=== PATIENT | male | born 1980 | race Caucasian/White ===

== ENCOUNTER 2019-07-26 16:05 | Observation (INO) | payer BC ==
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
[2019-07-26] MEDS ORDERED: Sodium Chloride 0.9% 10 ML Syringe FLUSH PRN (16:32)
--- NOTE | 2019-07-26 16:45 | CR ---
[id number] RAD/RAD Chest PA or AP 1V EXAM: SINGLE VIEW CHEST. INDICATION: SHORTNESS OF BREATH COMPARISON: NO PREVIOUS SIMILAR EXAM IS AVAILABLE FINDINGS: The lungs are clear The cardiomediastinal contour is normal IMPRESSION: NO ACUTE PROCESS Federico Malave MD 07/26/19 0684 Thank you for allowing us to participate in the care of your patient.
[2019-07-26 17:35] LABS: BASE EXCESS ARTERIAL -1 mmol/L (-2-3); BICARBONATE,ARTERIAL 24.6 mmol/L (22-26); O2 DELIVERY DEVICE NASAL CANNULA; O2 FLOW RATE 2 L/min; O2 SATURATION ARTERIAL 97 % (95-98); PCO2 ARTERIAL 42 mmHG (35-45); PO2 ARTERIAL 96 mmHG (80-105)
[2019-07-26 17:39] LABS: ANION GAP 14.5 mmol/L (5-15); CHLORIDE,CL 103 mmol/L (98-115); SODIUM,NA 141 mmol/L (136-145)
[2019-07-26] MEDS ORDERED: Clopidogrel 75 MG Tab PO ONE (17:51)
[2019-07-26] MEDS ORDERED: Aspirin 81 MG Tab.Chew PO ONE (17:51)
[2019-07-26] MEDS ORDERED: Acetaminophen 325 MG Tab PO PRN (17:55)
[2019-07-26] MEDS: Nitroglycerin 2% Oint 1 GM UD Packet TOP SCH (17:57)
[2019-07-26] MEDS ORDERED: Atropine 0.1 MG/ML 10 ML Syringe IVPUSH PRN (18:28)
[2019-07-26] MEDS ORDERED: EPINEPHrine 1:10,000 1 MG/10 ML Syringe IVPUSH PRN (18:28)
[2019-07-26] MEDS ORDERED: Nitroglycerin 0.4 MG Tab.SL SL PRN (18:28)
[2019-07-26] MEDS ORDERED: Lidocaine 2% 100 MG/5 ML Syringe IVPUSH PRN (18:28)
[2019-07-26] MEDS: Enoxaparin 100 MG/1 ML Syringe SUBCUT SCH (18:30)
[2019-07-27] MEDS: Nitroglycerin 2% Oint 1 GM UD Packet TOP SCH ×2 (00:36→06:32)
[2019-07-27] MEDS: Enoxaparin 100 MG/1 ML Syringe SUBCUT SCH (06:30)
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
== END 2019-07-27 11:35 | disposition home or self-care (01) ==
LOC: KA.ED 16:05 → KA.MS 17:55 → KA.ED 18:05
PROVIDERS: ADMIT Physician Assistant Medical; ATTEND Family Medicine
DX: T58.8X1A Toxic effect of carbon monoxide from other source, accidental (unintentional), initial encounter (principal); R74.8 Abnormal levels of other serum enzymes; X08.8XXA Exposure to other specified smoke, fire and flames, initial encounter
CPT/HCPCS: 36415; 36600; 71045; 80053; 82550; 82553; 82803; 84484; 85025; 93005; 96372; 99285; A9270; G0378; J1650